=== PATIENT | female | born 1960 | race Caucasian/White ===

== ENCOUNTER → 2021-07-15 | Outpatient (CLI) | payer OTHER ==
--- NOTE | 2021-07-15 16:54 | RAD ---
EXAM: BONE DENSITY STUDY - DEXA DATE: 07/15/2021 12:08 PM INDICATION: Menopausal, screening, tobacco use, thyroid medication. COMPARISON: No Prior TECHNIQUE: Lumbar vertebral and proximal femoral dual-energy X-ray absorptiometry (DXA) was performed on a central GRAVIDI device. FINDINGS: SPINE ANALYSIS RESULTS: Average lumbar bone mineral density (BMD) (g/cm2): 1.279 Lumbar T-score (standard deviation relative to young adult mean BMD): 0.8 Lumbar Z-score (standard deviation relative to age matched control group): 2.1 This may be artifactually elevated by degenerative change. SPINE CLASSIFICATION: Normal (T-score > -1.0). HIP ANALYSIS RESULTS: Right total femoral bone mineral density (BMD) (g/cm2): 0.783 Femur T-score (standard deviation relative to young adult mean BMD): -1.8 Femur Z-score (standard deviation relative to age matched control group): -0.8 HIP CLASSIFICATION (World Health Organization): Osteopenia (T-score -1.0 to -2.5). Note: The 2009 International Society for Clinical Densitometry (ISCD) Official Positions state that osteoporosis in sung-menopausal and post-menopausal women and in men age 50 and older may be diagnose d if the T-score of the lumbar spine, total hip, or femoral neck is -2.5 or less. Hip BMD is reported from the femoral neck or total proximal femur whichever is lowest. In cases where lumbar or hip BMD cannot be obtained or is not valid, distal forearm BMD is acceptable. IMPRESSION: Based on the World Health Organization Guidelines, Bone Mineral Density values of osteopenia in the right hip and normal bone mineral density in the spine. Electronically signed by: Nas Toledo MD (07/15/2021 4:52 PM) [id number]
--- NOTE | 2021-07-20 10:04 | RAD ---
BILATERAL DIGITAL SCREENING 2-D MAMMOGRAM INDICATION: Routine screening. COMPARISON: 02/14/2019, 01/24/2018, 01/25/2017 Interpretation was made using CAD. FINDINGS: Breast Density: The breasts are heterogeneously dense, which may obscure small masses. RIGHT BREAST: No suspicious masses, calcifications or areas of architectural distortion are seen. LEFT BREAST: No suspicious masses, calcifications or areas of architectural distortion are seen. IMPRESSION: 1. No imaging evidence of malignancy. ASSESSMENT: BI-RADS 1: Negative. RECOMMENDATION: Routine annual screening mammogram. The facility will notify the patient of the results via mail. Patient information will be entered int o the mammography reminder system with a target recall date for the next mammogram. A reminder letter will be generated by the facility. Electronically signed by: Collins Her MD (07/20/2021 10:02 AM) [id number]
== END ==
LOC: MAMMO 11:18
PROVIDERS: ATTEND Family Medicine
DX: Z12.31 Encounter for screening mammogram for malignant neoplasm of breast (principal); M85.88 Other specified disorders of bone density and structure, other site
CPT/HCPCS: 77063; 77067; 77080